=== PATIENT | female | born 1980 | race Caucasian/White ===

== ENCOUNTER 2019-04-05 15:13 | Inpatient (IN) | payer BC ==
[2019-04-05] MEDS ORDERED: hydrALAZINE 20 MG/ML VIAL SLOW IVP PRN ×2 (16:05)
[2019-04-05] MEDS ORDERED: Acetaminophen 500 MG TAB PO PRN (16:07)
[2019-04-05] MEDS ORDERED: NS / Oxytocin 40 units/1000ml 1,000 ML IV PRN ×2 (16:07→18:31)
[2019-04-05] MEDS ORDERED: Lidocaine 1% (PF) 30 ML VIAL SC PRN ×2 (16:07→18:31)
[2019-04-05] MEDS ORDERED: Promethazine HCl 25 MG/ML VIAL IM PRN ×2 (16:07→18:31)
[2019-04-05] MEDS ORDERED: Calcium Gluc 4.6 MEQ/10 ML (100 MG/ML) SLOW IVP PRN (16:07)
[2019-04-05] MEDS ORDERED: Ondansetron PF 4 MG/2 ML Vial IVP PRN (16:07)
[2019-04-05] MEDS ORDERED: Lactated Ringer's 1,000 ML IV SCH ×2 (16:15→18:45)
[2019-04-05 16:51] VITALS: BMI 31.6
[2019-04-05 16:51] LABS: Hemoglobin 10.1 g/dL (12.0-16.0); Mean Corpuscular HGB CONC 34.3 g/dL (32.0-36.0); Mean Corpuscular Hemoglobin 26.9 pg (27.0-31.0); Mean Corpuscular Volume 78.2 fL (78.0-98.0); Mean Platelet Volume 7.2 fL (7.4-10.4); Platelet Count 302 thou/uL (130-400); RBC Distribution Width 12.6 % (11.5-14.5); Red Blood Cell (RBC) Count 3.77 mill/uL (4.20-5.40); White Blood Cell (WBC) Count 14.3 thou/uL (4.8-10.8)
[2019-04-05 17:13] LABS: ALT (SGPT) Less than 7 U/L (8-55); AST (SGOT) 9 U/L (5-34); Albumin 3.3 g/dL (3.5-5.0); Alkaline Phosphatase 130 U/L (40-150); Anion Gap 11 mmol/L (10-20); BUN (Urea Nitrogen) 6 mg/dL (7.0-18.7); Bilirubin, Total 0.8 mg/dL (0.2-1.2); Calc. Creatinine Clearance 148 mL/min (70-130); Calcium 11.6 mg/dL (7.8-10.44); Carbon Dioxide 24 mmol/L (22-29); Chloride 106 mmol/L (98-107); Estimated GFR-MDRD Greater than 90; Globulin 2.8 g/dL (2.4-3.5); Glucose 96 mg/dL (70-105); Potassium 3.8 mmol/L (3.5-5.1); Protein, Total 6.1 g/dL (6.0-8.3); Sodium 137 mmol/L (136-145)
[2019-04-05 17:15] LABS: Creatinine, Urine 44.49 mg/dL (47-110); Protein, Urine Random Quant Less than 10 mg/dL (1-14)
[2019-04-05 17:32] LABS: HBSAg Index 0.34 S/CO (0-0.99); Hep B Surf Ag Non-Reactive S/CO (NonReactive); Syphilis Antibody Nonreactive (Nonreactive); Syphilis Antibody Index 0.03 S/CO (<1.00 Non-Reactive)
[2019-04-05] MEDS ORDERED: Ibuprofen 800 MG TAB PO PRN (18:31)
[2019-04-05] MEDS ORDERED: HYDROcodone/Acetaminophen 5/325 mg Tablet PO PRN ×2 (18:31)
[2019-04-05] MEDS ORDERED: Butorphanol Tartrate 1 MG/ML VIAL SLOW IVP PRN (18:31)
[2019-04-05] MEDS ORDERED: Misoprostol 100 MCG TAB ONE (18:34)
[2019-04-05] MEDS ORDERED: NS w/ Oxytocin 10 units 500 ML IV SCH (18:45)
[2019-04-05] MEDS ORDERED: Misoprostol 100 MCG TAB VAG SCH ×2 (18:45→20:00)
[2019-04-05] MEDS: Misoprostol 100 MCG TAB VAG SCH (19:01)
--- NOTE | 2019-04-05 20:35 | HP ---
TIME OF ADMISSION: 6:35 p.m. REASON FOR ADMISSION: Gestational hypertension at 37 to 38 weeks gestation. HISTORY OF PRESENT ILLNESS: Ms. Siddiqui is a 39-year-old primigravida, EDC of 04/22/2019. She sees Dr. Mayte Murcia of [facility]. 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 She has had increasing edema. She is noted to have 140s to 150s in the office and was sent over. Initial blood pressures upon presentation 170s diastolic, however, after admission and the patient calmed down over the past 3 hours, blood pressures have been 130s to 150s. The patient has no headaches. She has 1+ DTRs. She has 1+ edema. DIRECT OF REAL ESTATE HISTORY: As noted. Blood type O positive, antibody negative. Pap negative. Rubella immune. VDRL nonreactive. Hepatitis B, GC, chlamydia negative. Group B strep negative. MEDICAL HISTORY: The patient has history of left upper quadrant pain that seems to be either dislocated or fractured ribs from coughing during her . SURGICAL HISTORY: Denies. ALLERGIES: PENICILLIN AND DIAZEPAM. MEDICATIONS: vitamins. SOCIAL HISTORY: Denies tobacco, alcohol, or drug abuse. FAMILY HISTORY: Noncontributory. REVIEW OF SYSTEMS: Noncontributory. PHYSICAL EXAMINATION: GENERAL: White female, in no acute distress. VITAL SIGNS: Blood pressure 143/84, pulse 81, respirations 18. HEENT: Within normal limits. LUNGS: Clear to auscultation bilaterally. HEART: Regular rhythm. ABDOMEN: Soft, nontender. Fundal height of 38 cm. FHTs 140s. Vulva without lesions. Vagina without discharge. Cervix was 1, thick and high in clinic. Cephalic presentation, ballots with ease. EXTREMITIES: No clubbing, cyanosis, or edema. LABORATORY DATA: Hematocrit 29.5%, platelet count is 302. Creatinine is within normal limits. ALT and AST are within normal limits. Protein-creatinine ratio is low and dip urine protein was negative. IMPRESSION: 37 to 38 weeks' gestation with gestational hypertension. No evidence of preeclampsia. Severe range blood pressures noted x1 upon presentation. PLAN: Considering the patient's 37 to 38 weeks gestation with significant edema and some severe range pressures, discussed with Dr. Murcia. We will go ahead and begin Cytotec and Pitocin induction. Hydralazine as needed for severe range blood pressures. If the patient develops headache or blood pressures over 160, we would consider magnesium sulfate prophylaxis. Job ID: [id number]
[2019-04-05] MEDS: Lactated Ringer's 1,000 ML IV SCH (22:20)
[2019-04-06] MEDS: Misoprostol 100 MCG TAB VAG SCH ×3 (01:45→10:25)
[2019-04-06] MEDS: Ondansetron PF 4 MG/2 ML Vial IVP PRN ×2 (02:38→15:01)
[2019-04-06] MEDS: Lactated Ringer's 1,000 ML IV SCH ×3 (06:27→20:51)
[2019-04-06] MEDS ORDERED: Fentanyl 4 mcg/Bup 0.1% Cadd 100 ML ONE ×2 (07:45→15:27)
--- NOTE | 2019-04-06 07:50 | PDOC.LDPN ---
Labor & Delivery Progress Note - Subjective Subjective: painful contractions - Objective Vital signs reviewed and normal: yes General: NAD Uterine fundus: non tender Dilation: 1 Effacement: 50% Station: -3 FHT: category 1, variability present [place] contractions every: 2-3min -: s/p cytotec x 3, still needs ripening, will do cook balloon with low dose pitocin 1x1 to 10. No sx PIH, neg labs, BP nl - mild for GHTN. GBS neg.
[2019-04-06] MEDS ORDERED: NS w/ Oxytocin 10 units 500 ML IV SCH (07:51)
--- NOTE | 2019-04-06 14:09 | PDOC.LDPN ---
Labor & Delivery Progress Note - Subjective Subjective: comfortable, vaginal pressure - Objective Vital signs reviewed and normal: yes General: NAD Uterine fundus: non tender Dilation: 6 Effacement: 90% Station: -1 (cook balloon out) FHT: category 1 [place] contractions every: 2-3min Plan: labor augmentation
[2019-04-06] MEDS ORDERED: Lidocaine 1% (PF) 30 ML VIAL ONE (15:06)
--- NOTE | 2019-04-06 20:14 | PDOC.OPDEL ---
OB Operative/Delivery Note Delivery Dr/Surgeon: Divina Assist: n/a Pre-Delivery Diagnosis: medically indicated induction (GHTN) Procedure/Post Delivery Dx: spontaneous vaginal delivery Weeks gestation: 37 Anesthesia: epidural - Findings A Sex: male - Additional Findings/Plan Placenta delivered: spontaneous Repaired Obstetrical Laceration: none Estimated blood loss: 111cc Compilations/Other Findings: NC and body cord x 1 Post delivery plan: routine recovery
[2019-04-06 20:15] LABS: Actual Bicarbonate (HCO3a) 19.1 mEq/L (22-28); Base Excess (BEa) -12.8 mEq/L (-2.0 to +3.0)
[2019-04-06 20:17] LABS: Actual Bicarbonate (HCO3v) 18 mEq/L (22-28); Base Excess -7.5 mEq/L (-2.0 to +3.0)
[2019-04-06] MEDS ORDERED: CEFAZOLIN 2 GM in Premix Bag 1 BAG IVPB SCH (21:15)
[2019-04-06] MEDS ORDERED: Milk Of Magnesia 30 ML UDCUP PO PRN (22:00)
[2019-04-06] MEDS ORDERED: HYDROcodone/Acetaminophen 5/325 mg Tablet PO PRN ×2 (22:00)
[2019-04-06] MEDS ORDERED: Ondansetron PF 4 MG/2 ML Vial IVP PRN (22:00)
[2019-04-06] MEDS ORDERED: Preparation H Ointment 28 GM TUBE PR PRN (22:00)
[2019-04-06] MEDS ORDERED: Promethazine HCl 25 MG/ML VIAL IM PRN (22:00)
[2019-04-06] MEDS ORDERED: Lanolin Ointment 7 GM TUBE TOP PRN (22:00)
[2019-04-06] MEDS ORDERED: NS / Oxytocin 40 units/1000ml 1,000 ML IV SCH (22:00)
[2019-04-06] MEDS ORDERED: Benzocaine-Menthol 82.5 ML CAN TOP PRN (22:00)
[2019-04-06] MEDS ORDERED: diphenhydrAMINE 25 MG CAP PO PRN (22:00)
[2019-04-06] MEDS ORDERED: Bisacodyl 10 MG SUPP PR PRN (22:00)
[2019-04-06] MEDS ORDERED: Docusate Calcium (SURFAK) 240 MG CAP PO SCH (22:30)
[2019-04-06] MEDS ORDERED: Ibuprofen 800 MG TAB PO SCH (22:45)
[2019-04-06] MEDS: Ibuprofen 800 MG TAB PO SCH (23:39)
[2019-04-06] MEDS: Docusate Calcium (SURFAK) 240 MG CAP PO SCH (23:39)
[2019-04-07] MEDS: Levothyroxine Sodium 75 MCG TAB PO SCH (06:06)
[2019-04-07] MEDS: Ibuprofen 800 MG TAB PO SCH ×3 (06:06→21:39)
[2019-04-07 06:56] LABS: Hemoglobin 9.5 g/dL (12.0-16.0); Mean Corpuscular HGB CONC 34.7 g/dL (32.0-36.0); Mean Platelet Volume 7.4 fL (7.4-10.4); Platelet Count 242 thou/uL (130-400); RBC Distribution Width 12.5 % (11.5-14.5); Red Blood Cell (RBC) Count 3.51 mill/uL (4.20-5.40); White Blood Cell (WBC) Count 25.5 thou/uL (4.8-10.8)
--- NOTE | 2019-04-07 08:16 | PDOC.PP ---
Post Progress Note Post Day #: 1 Subjective: doing well, no concerns PO intake tolerated: yes Flatus: yes Ambulation: yes Vital Signs (12 hours) Temp Pulse Resp BP Pulse Ox 04/07/19 04:00 98.1 F 72 20 132/71 04/06/19 23:35 98.3 F 83 20 139/84 04/06/19 22:32 99.8 F H 80 18 145/76 H 97 Weight Weight 190 lb - Physical Examination General: NAD Respiratory: non-labored breathing Fundus firm & at: umbilicus Skin: no rash Neurological: no gross focal deficits Psychiatric: A&Ox3, normal affect Result Diagrams: 04/07/19 06:20 04/05/19 16:42 Additional Labs: Post Labs Blood Type O POSITIVE 04/05/19 17:04 Hep Bs Antigen Non-Reactive S/CO (NonReactive) 04/05/19 16:42 - Assessment/Plan PPD 1 doing well, plan for DC tomorrow.
[2019-04-07] MEDS ORDERED: Adacel (T-DAP) 0.5 ML SYRINGE IM ONE (09:00)
[2019-04-07] MEDS: Prenatal Vitamin 1 TAB PO SCH (09:26)
[2019-04-07] MEDS: Docusate Calcium (SURFAK) 240 MG CAP PO SCH ×2 (09:26→21:38)
[2019-04-07] MEDS: Ferrous Sulfate 325 MG TAB PO SCH ×2 (09:29→18:01)
[2019-04-07 12:08] VITALS: TEMP 98.1
[2019-04-07] MEDS ORDERED: Bupivacaine 0.25% HCL 30 ML VIAL ONE (18:00)
[2019-04-08] MEDS: Ibuprofen 800 MG TAB PO SCH ×2 (06:12→14:26)
[2019-04-08] MEDS: Levothyroxine Sodium 75 MCG TAB PO SCH (06:12)
--- NOTE | 2019-04-08 07:59 | PDOC.PP ---
Post Progress Note Post Day #: 2 PO intake tolerated: yes Flatus: yes Ambulation: yes Vital Signs (12 hours) Temp Pulse Resp BP Pulse Ox 04/07/19 20:08 98.1 F 77 18 127/71 96 Weight Weight 190 lb - Physical Examination General: NAD Respiratory: non-labored breathing Abdominal: no distention, appropriately TTP Fundus firm & at: umb-2 Extremities: negative homans (B) Skin: no rash Neurological: no gross focal deficits Psychiatric: normal affect Result Diagrams: 04/07/19 06:20 04/05/19 16:42 Additional Labs: Post Labs Blood Type O POSITIVE 04/05/19 17:04 Hep Bs Antigen Non-Reactive S/CO (NonReactive) 04/05/19 16:42 - Assessment/Plan PPD2 s/p TSVD w/ GHTN GHTN- no sx PIH, labs nl, BP nl Doing well Hemorrhoids cont sitz bath tucks wipes and preparation h Mild anemia due to iron def, cont iron and PNV on DC Rh pos RImm DC home, FU 6w
[2019-04-08 08:14] VITALS: BP 148/80
[2019-04-08] MEDS: Prenatal Vitamin 1 TAB PO SCH (09:26)
[2019-04-08] MEDS: Ferrous Sulfate 325 MG TAB PO SCH (09:27)
[2019-04-08] MEDS: Docusate Calcium (SURFAK) 240 MG CAP PO SCH (09:27)
== END 2019-04-08 16:07 | disposition home or self-care (01) | DRG 807 ==
LOC: L&D/OP 15:13 → L&D 18:55 → 3SW 04-06 22:33
PROVIDERS: ADMIT Student in an Organized Health Care Education/Training Program; ATTEND Student in an Organized Health Care Education/Training Program
PROC: 10E0XZZ Delivery of Products of Conception, External Approach (ICD-10-PCS; principal; 2019-04-06)
PROC: 3E0P7VZ Introduction of Hormone into Female Reproductive, Via Natural or Artificial Opening (ICD-10-PCS; 2019-04-06)
PROC: 3E033VJ Introduction of Other Hormone into Peripheral Vein, Percutaneous Approach (ICD-10-PCS; 2019-04-06)
DX: O13.4 Gestational [pregnancy-induced] hypertension without significant proteinuria, complicating childbirth (principal); Z37.0 Single live birth; O69.81X0 Labor and delivery complicated by cord around neck, without compression, not applicable or unspecified; Z3A.37 37 weeks gestation of pregnancy; O12.04 Gestational edema, complicating childbirth; O99.02 Anemia complicating childbirth; O22.43 Hemorrhoids in pregnancy, third trimester; D50.9 Iron deficiency anemia, unspecified
CPT/HCPCS: 36415; 51702; 80053; 81003; 82570; 82805; 84156; 85027; 86780; 86850; 86900; 86901; 87340; 99285; C1726; J0360; J0595; J0690; J2001; J2405; J2590; S0020

== ENCOUNTER 2019-11-20 13:17 | Emergency (ER) | payer BC ==
[2019-11-20 14:27] LABS: Bilirubin Negative (Negative); Blood, Urine Negative (Negative); Clarity Clear (Clear); Glucose, Urine (Dipstick) Normal (Negative); Leukocyte Negative Leu/uL (Negative); Nitrite Negative (Negative); Protein, Urine (Dipstick) Negative (Neg-Trace); Urobilinogen Normal mg/dL (Less than 2)
--- NOTE | 2019-11-20 15:27 | ULT ---
EXAM: Pelvic ultrasound HISTORY: Pelvic pain in a female COMPARISON: None TECHNIQUE: Multiple grayscale and color Doppler images were obtained in a transabdominal and transvag inal pelvic ultrasound. Spectral analysis of the Doppler waveforms of the ovaries were performed. FINDINGS: UTERUS: There is a possible small intrauterine gestational sac with mean sac diameter of 0.63 cm. Thi s would estimate gestational age at 5 weeks 2 days. No pole or yolk sac is seen within this possible gestational sac. No evidence of subchorionic hemorrhage. No free fluid is seen in the pelvis. RIGHT OVARY: Normal flow without focal mass. A dominant follicle is seen in the right ovary. LEFT OVARY: Normal flow without focal mass. There is no evidence of ectopic . IMPRESSION: Possible early gestational sac seen within the uterus.
== END 2019-11-20 17:06 | disposition home or self-care (01) ==
LOC: ERS 13:17
DX: O99.89 Other specified diseases and conditions complicating pregnancy, childbirth and the puerperium (principal); R12 Heartburn; Z3A.01 Less than 8 weeks gestation of pregnancy
CPT/HCPCS: 36415; 76856; 81003; 84702; 86900; 86901